=== PATIENT | female | born 1945 | race Caucasian/White ===

== ENCOUNTER 2017-09-08 15:02 | Emergency (ER) | payer OTHER ==
[~2017-09-08] VITALS: Ht 149.9 cm; Wt 55.8 kg
[~2017-09-08 15:02] MED LIST: ALENDRONATE SOD70 M2 PO; ATENOLOL50 MG PO; BENAZEPRIL HYDR40 M1 PO; DYA PO; GLYBURIDE5 MG PO; METFORMIN HCL1000 MG PO; OYSTER CALCIUM1 TAB PO; SERTRALINE HYDR50 M1 PO; SIMVASTATIN10 M1 PO; VITAMIN D1000 I1 PO
[2017-09-08 17:25] VITALS: BP 145/70
== END 2017-09-08 17:25 | disposition home or self-care (01) ==
LOC: ED 15:02
DX: M54.31 Sciatica, right side (principal); I10 Essential (primary) hypertension; E11.9 Type 2 diabetes mellitus without complications; E78.00 Pure hypercholesterolemia, unspecified; Z79.84 Long term (current) use of oral hypoglycemic drugs